=== PATIENT | male | born 1945 | race Caucasian/White ===

== ENCOUNTER → 2017-01-23 | Outpatient (CLI) | payer OTHER ==
[~2017-01-23] MED LIST: IOPAMIDOL (ISOVUE-300) 100 ML BTL ONE
== END ==
LOC: FIMAGING 12:25
PROVIDERS: ATTEND Internal Medicine
DX: K83.9 Disease of biliary tract, unspecified (principal); K86.9 Disease of pancreas, unspecified; N28.1 Cyst of kidney, acquired
CPT/HCPCS: 74160; Q9967

== ENCOUNTER → 2017-01-23 | Outpatient (CLI) | payer OTHER | LOC: BMCIMAGING 07:17 | PROVIDERS: ATTEND Internal Medicine | DX: K86.89 Other specified diseases of pancreas (principal) ==

== ENCOUNTER 2017-01-29 07:35 | Day surgery (SDC) | payer OTHER ==
[2017-01-29] MEDS ORDERED: LR 1,000 ML IV ONE (07:48)
[2017-01-29] MEDS ORDERED: LIDOCAINE 1% 2 ML INJ ID PRN (07:48)
[2017-01-29 08:12] VITALS: PULSE 60
[2017-01-29] MEDS ORDERED: PROPOFOL 200 MG/20 ML VIAL ONE (08:17)
[2017-01-29] MEDS ORDERED: LIDOCAINE 2% 5 ML SDV ONE (08:18)
[2017-01-29] MEDS ORDERED: SUCCINYLCHOLINE CHLORIDE*ANESTHESIA ONLY*200 MG/10 ML SYR IVP ONE (08:20)
[2017-01-29] MEDS ORDERED: GLUCAGON HCL 1 MG VIAL ONE (08:27)
[2017-01-29] MEDS ORDERED: IOTHALAMATE MEG (CONRAY) 50 ML VIAL IV ONE (08:28)
[2017-01-29] MEDS ORDERED: DEXAMETHASONE 4 MG/ML VIAL ONE (09:02)
[2017-01-29] MEDS ORDERED: ONDANSETRON 4 MG/2 ML VIAL ONE (09:03)
[2017-01-29] MEDS ORDERED: INDOMETHACIN 50 MG SUPP PR PRN (09:12)
--- NOTE | 2017-01-29 09:12 | PDGENHP ---
History & Physical Chief Complaint: abnormal imaging History of Present Illness: 71 year old male presents for evaluation of biliary obstruction and mass in head of pancreas. Pertinent Past, Social, Family History: PMHx: HTN Relevant Physical Exam: HEENT: anicteric. CV: RRR +s1s2. Lungs: CTAB. Abd: soft, nt, + bs. No g/r Cardiorespiratory Assessment: ASA 2
[2017-01-29] MEDS ORDERED: NS 500 ML IV SCH (09:15)
[2017-01-29] MEDS ORDERED: levOFLOXACIN 500 MG/DEXTROSE/100 ML BAG IV ONE (10:02)
[2017-01-29] MEDS ORDERED: OXYCODONE/APAP 5/325 TAB PO PRN (10:33)
[2017-01-29] MEDS ORDERED: ACETAMINOPHEN 500 MG TAB PO PRN (10:33)
[2017-01-29] MEDS ORDERED: NALOXONE HCL 0.4 MG/ML INJ IVP PRN (10:33)
[2017-01-29] MEDS ORDERED: ALBUTEROL 3 ML DEYVIAL IH PRN (10:33)
[2017-01-29] MEDS ORDERED: fentaNYL 100 MCG/2 ML INJ IVP PRN (10:33)
--- NOTE | 2017-01-29 10:33 | POSTANESTH ---
Post Anesthetic Evaluation Cardiovascular Status: Normal, Stable Respiratory Status: Normal, Stable Level of Consciousness/Mental Status: Can Participate in Eval Pain Control: Adequate, Prn Tx Ordered Nausea/Vomiting Control: Adequate, Prn Tx Ordered Complications Possibly Related to Anesthesia: None Noted
--- NOTE | 2017-01-29 10:33 | PDANEPAE ---
ANE History of Present Illness h/o pancreatic mass ANE Past Medical History - Cardiovascular History Hx Hypertension: No Hx Arrhythmias: Yes Hx Chest Pain: No Hx Coronary Artery / Peripheral Vascular Disease: No Hx CHF / Valvular Disease: No Hx Palpitations: No Cardiovascular History Comment: atrial fib X 1 occurance - Pulmonary History Hx COPD: No Hx Asthma/Reactive Airway Disease: No Hx Recent Upper Respiratory Infection: No Hx Oxygen in Use at Home: No Hx Sleep Apnea: No Sleep Apnea Screening Result - Last Documented: Negative Pulmonary History Comment: Histoplasmosis - Neurologic History Hx Cerebrovascular Accident: No Hx Seizures: No Hx Dementia: No - Endocrine History Hx Diabetes: No - Renal History Hx Renal Disorders: No - Liver History Hx Hepatic Disorders: No - Neurological & Psychiatric Hx Hx Neurological and Psychiatric Disorders: Yes Neurological / Psychiatric History Comment: anxious - Cancer History Hx Cancer: No - Congenital Disorder History Hx Congenital Disorders: Yes - GI History Hx Gastrointestinal Disorders: Yes Gastrointestinal History Comment: Bloating, Gerd, pancreatic mass - Chronic Pain History Chronic Pain: No - Surgical History Prior Surgeries: bunionectomy right ANE Review of Systems Review of Systems: - Exercise capacity METS (RN): 5 METS ANE Patient History - Allergies Allergies/Adverse Reactions: No Known Allergies Allergy (Unverified 01/26/17 13:53) - Home Medications Home medications: home medication list seen and reviewed Home Medications: Ambien 10 mg PRN 01/26/17 [Last Taken 01/26/17] Ativan 01/26/17 [Last Taken 01/28/17] - NPO status NPO Since - Liquids (Date): 01/28/17 NPO Since - Liquids (Time): 21:00 NPO Since - Solids (Date): 01/28/17 NPO Since - Solids (Time): 18:00 - Anes Hx Anes Hx: no prior problems - Smoking Hx Smoking Status: Former smoker - Family Anes Hx Family Hx Anesthesia Complications: none ANE Labs/Vital Signs - Vital Signs Blood Pressure: 137/84 Heart Rate: 60 Respiratory Rate: 16 O2 Sat (%): 96 Height: 180.34 cm Weight: 71.668 kg ANE Physical Exam - Airway Neck exam: FROM Mallampati Score: Class 1 Mouth exam: normal dental/mouth exam - Pulmonary Pulmonary: no respiratory distress - Cardiovascular Cardiovascular: regular rate and rhythym - ASA Status ASA Status: II ANE Anesthesia Plan Anesthesia Plan: general endotracheal anesthesia Urgent/Emergent Case: Anes eval completed preop but documented later for safe timely pt care
--- NOTE | 2017-01-29 10:37 | GIREPORT ---
[facility] Surgical Services - Endoscopy Department Patient Name: Ishaan Locke Procedure Date: 01/29/2017 9:04 AM Patient Type: Outpatient Attending MD/ ER Physician: Wesley Simon MD Procedure: Upper EUS Indications: Suspected mass in pancreas on CT scan, Elevated alkaline phosphatase Patient Profile: 71 year old male presents for abnormal imaging. He had a recent CT scan which revealed a mass in the head of the pancreas with biliary obstruct ion. Providers: Wesley Simon MD Medicines: General Anesthesia Complications: No immediate complications. Estimated blood loss: Minimal. Description of Procedure: After obtaining informed consent, the endoscope was passed under direct vision. Throughout the procedure, the patient's blood pressure, pulse, and oxygen saturations were monitored continuously. The Endosonoscope was introduced through the mouth, and advanced to the second part of duoden um. The Endoscope was introduced through the mouth, and advanced to the sec ond part of duodenum. The upper EUS was accomplished without difficulty. Th e esophagus, stomach, and duodenum were visualized endosonographically. T he patient tolerated the procedure well. Findings: Endoscopic Finding : Mucosal changes including a subtle ringed esophagus were found in the m iddle third of the esophagus. Biopsies were taken with a cold forceps for histology. A hiatal hernia was present. Patchy mildly erythematous mucosa was found in the gastric body and in the gastric antrum. Biopsies were taken with a cold forceps for histology. The examined duodenum was normal. Endosonographic Finding : An irregular mass was identified in the pancreatic head. The mass was hypoechoic. The mass measured 25.5 mm by 21 mm in maximal cross-section al diameter. The endosonographic borders were poorly-defined. No vessel involvement was noted. The remainder of the pancreas was examined. The endosonographic appearance of parenchyma and the upstream pancreatic du ct indicated duct dilation (6mm) Fine needle aspiration for cytology was performed. Color Doppler imaging was utilized prior to needle puncture to confirm a lack of significant vascular structures within the needle pat h. One pass was made with the 25 gauge needle using a transduodenal approa ch. A stylet was used. A cook's assistant was present and performed a preliminary cytologic examination. 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 A few lmyph nodes measuring 3-4 mm, round, and isoechoic were seen. They were located close to the level of the tumor and thus not amenable to FNA. There was dilation in the main bile duct which measured up to 14 mm. Th e gallbladder was distended. There was no sign of significant endosonographic abnormality in the visualized portion of the liver. Homogeneous parenchyma was identified. Estimated Blood Loss: Estimated blood loss was minimal. Post Op Diagnosis: - Esophageal mucosal changes which may represent eosinophilic esophagit is. Biopsied. - Hiatal hernia. - Erythematous mucosa in the gastric body and antrum. Biopsied. - Normal examined duodenum. - A mass was identified in the pancreatic head. Fine needle aspiration performed. A few small peripancreatic lymph nodes were seen which were not amenable to FNA. No vessel or liver involvement visualized. - There was dilation in the entire main bile duct and in the gallbladde r which measured up to 14 mm. - There was no evidence of significant pathology in the visualized port ion of the liver. Recommendation: - Perform an ERCP today. - Await cytology results and await path results. - Thank you for allowing me to participate in the care of your patient. Attending Participation: I personally performed the entire procedure. Wesley Simon MD Wesley Simon MD 01/29/2017 10:37:02 AM This report has been signed electronicallyWesley Simon MD Number of Addenda: 0 Note Initiated On: 01/29/2017 9:04 AM [email or web address]
[2017-01-29 10:54] VITALS: TEMP 97.9
--- NOTE | 2017-01-29 10:56 | GIREPORT ---
[facility] Surgical Services - Endoscopy Department Patient Name: Ishaan Locke Procedure Date: 01/29/2017 9:40 AM Patient Type: Outpatient Attending MD/ ER Physician: Wesley Simon MD Procedure: ERCP Indications: Biliary obstruction, CBD stricture Patient Profile: 71 year old male presents for biliary decompression. Providers: Wesley Simon MD Medicines: General Anesthesia, Indomethacin 100 mg OH, Levaquin 500 mg IV Complications: No immediate complications. Estimated blood loss: Minimal. Description of Procedure: After obtaining informed consent, the scope was passed under direct vis ion. Throughout the procedure, the patient's blood pressure, pulse, and oxyg en saturations were monitored continuously. The Duodenalscope was introduc ed through the mouth, and advanced to the duodenum and used to inject cont rast into the bile duct. The ERCP was accomplished without difficulty. The patient tolerated the procedure well. Findings: The spool sorter film was normal. The esophagus was successfully intubated und er direct vision. The scope was advanced to a normal major papilla in the descending duodenum without detailed examination of the pharynx, larynx and associated structures, and upper GI tract. The upper GI tract was gross ly normal. A wire was passed into the biliary tree after about 4-5x. The short-nosed traction sphincterotome was passed over the guidewire and t he bile duct was then deeply cannulated. Contrast was injected. I personal ly interpreted the bile duct images. Ductal flow of contrast was adequate. Image quality was adequate. Contrast extended to the entire biliary johan e. A 2cm distal CBD stricture at the level of the pancreas was noted. A 10 m m biliary sphincterotomy was made with a traction (standard) sphincteroto me using pure cut current. The sphincterotomy oozed blood. The biliary johan e was swept with a 12 mm balloon starting at the bifurcation. Sludge was swep t from the duct. One 10 mm by 6 cm temporary covered metal stent was plac ed into the common bile duct. Bile flowed through the stent. The stent was in good position. A 10mm x 4cm stent was attempted to be placed but could not be deployed due to the stent being defective. Estimated Blood Loss: Estimated blood loss: Minimal. Post Op Diagnosis: - A biliary sphincterotomy was performed. - The biliary tree was swept and sludge was found. - One removalable fully covered metal stent was placed into the common bile duct. Recommendation: - Discharge patient to home (with escort). - Clear liquid diet. - Continue present medications. - Follow up with oncology - Thank you for allowing me to participate in the care of your patient. Attending Participation: I personally performed the entire procedure. Wesley Simon MD Wesley Simon MD 01/29/2017 10:55:23 AM This report has been signed electronicallyWesley Simon MD Number of Addenda: 0 Note Initiated On: 01/29/2017 9:40 AM [email or web address]}
[2017-01-29 11:21] VITALS: RESP 14
[2017-01-29 12:29] VITALS: BP 165/100; O2SAT 96
== END 2017-01-29 12:22 | disposition home or self-care (01) ==
LOC: FSGY 07:35
PROVIDERS: ATTEND Internal Medicine Gastroenterology
PROC: 0FBG8ZX Excision of Pancreas, Via Natural or Artificial Opening Endoscopic, Diagnostic (ICD-10-PCS; principal; 2017-01-29 09:00)
PROC: 0F798DZ Dilation of Common Bile Duct with Intraluminal Device, Via Natural or Artificial Opening Endoscopic (ICD-10-PCS; principal; 2017-01-29 09:00)
PROC: 0DB28ZX Excision of Middle Esophagus, Via Natural or Artificial Opening Endoscopic, Diagnostic (ICD-10-PCS; principal; 2017-01-29 09:00)
PROC: 0DB68ZX Excision of Stomach, Via Natural or Artificial Opening Endoscopic, Diagnostic (ICD-10-PCS; principal; 2017-01-29 09:00)
DX: C25.9 Malignant neoplasm of pancreas, unspecified (principal); K83.8 Other specified diseases of biliary tract; K21.9 Gastro-esophageal reflux disease without esophagitis; K44.9 Diaphragmatic hernia without obstruction or gangrene
CPT/HCPCS: C1874; J0330; J1100; J1610; J1956; J2405; J2704; Q9961

== ENCOUNTER 2017-02-09 06:36 | Day surgery (SDC) | payer OTHER ==
--- NOTE | 2017-02-08 14:41 | GHP ---
[f rep st] HISTORY AND PHYSICAL DATE OF SURGERY: Thursday, February 09, 2017. HISTORY OF PRESENT ILLNESS: Patient is a very pleasant, 71-year-old male, former [employer] of [employer], who was recently diagnosed with pancreatic cancer. He comes to our office to discuss having a port placed for chemotherapy. He reports he is going to undergo chemotherapy and possibly radiation first and then be assessed for whether he is a surgical candidate ( [facility]). He has consulted a surgeon [facility]. He has never had any chest surgery. He is otherwise healthy, no heart or lung issues in the past. PAST MEDICAL HISTORY: None. PAST SURGICAL HISTORY: Inguinal hernia repair (Dr. Martínez). ALLERGIES: None. MEDICATIONS: Ambien p.r.n., Ativan p.r.n. 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 REVIEW OF SYSTEMS: Negative 10 point review of systems. PHYSICAL EXAMINATION: GENERAL: Patient is a very pleasant, fit-appearing male in no apparent distress, non-jaundice. HEAD AND NECK: No masses. CHEST: No scars. CTA bilaterally. HEART: Regular rhythm and rate. ABDOMEN: Soft, nontender. EXTREMITIES: No lower extremity edema. Normal dorsalis pedis pulses to palpation. IMPRESSION: A 71-year-old male with a diagnosis of pancreatic cancer, in need of access for chemotherapy. RECOMMENDATION: Port placement procedure was discussed with the patient in detail, including risks of pneumothorax and great vessel injury. Also discussed were the routine surgical risks, including infection, bleeding, hematoma or seroma. Patient was seen and examined by Dr. Martínez. He elects to schedule surgery tomorrow, on February 09, 2017. /[id number]/MODL MTDD
--- NOTE | 2017-02-08 17:57 | PDHPUP ---
History & Physical Update H&P update statement: This history and physical update is based on an assessment of the patient which was completed after admission or registration (within 24 hours), but prior to the surgery/procedure. Updated
[2017-02-09] MEDS ORDERED: ceFAZolin 2 GM/DEXTROSE 100 ML IV ONE (06:43)
[2017-02-09] MEDS ORDERED: LIDOCAINE 1% 2 ML INJ ID PRN (06:46)
[2017-02-09] MEDS ORDERED: LR 1,000 ML IV ONE (06:46)
[2017-02-09 07:00] VITALS: PULSE 64
[2017-02-09] MEDS ORDERED: ceFAZolin 2 GM/SWFI 2 GM/20 ML SYR IVP ONE (07:00)
[2017-02-09] MEDS ORDERED: BUPIVACAINE 0.5% 30 ML SDV ONE (07:31)
[2017-02-09] MEDS ORDERED: BACITRACIN ZINC 14.2 GM OINTTUBE TP ONE (07:31)
[2017-02-09] MEDS ORDERED: LIDOCAINE 1% 300 MG/30 ML SDV ONE (07:31)
[2017-02-09] MEDS ORDERED: SODIUM BICARBONATE 10 MEQ/10 ML SYR IVP ONE (07:31)
[2017-02-09] MEDS ORDERED: PROPOFOL 200 MG/20 ML VIAL ONE (08:02)
[2017-02-09] MEDS ORDERED: fentaNYL 100 MCG/2 ML INJ ONE (08:02)
[2017-02-09] MEDS ORDERED: ONDANSETRON 4 MG/2 ML VIAL ONE (08:04)
[2017-02-09] MEDS ORDERED: DEXAMETHASONE 4 MG/ML VIAL ONE (08:04)
[2017-02-09] MEDS ORDERED: ACETAMINOPHEN 500 MG TAB PO PRN (08:38)
[2017-02-09] MEDS ORDERED: HYDROmorphONE/DILAUDID 1 MG/ML INJ IVP PRN (08:38)
[2017-02-09] MEDS ORDERED: LR 500 ML IV PRN (08:38)
[2017-02-09] MEDS ORDERED: HYDROCODONE/APAP 5/325 TAB PO PRN (08:38)
[2017-02-09] MEDS ORDERED: ONDANSETRON 4 MG/2 ML VIAL IVP PRN (08:38)
[2017-02-09] MEDS ORDERED: OXYCODONE/APAP 5/325 TAB PO PRN (08:38)
[2017-02-09] MEDS ORDERED: ALBUTEROL 3 ML DEYVIAL IH PRN (08:38)
[2017-02-09] MEDS ORDERED: fentaNYL 100 MCG/2 ML INJ IVP PRN (08:38)
[2017-02-09] MEDS ORDERED: NALOXONE HCL 0.4 MG/ML INJ IVP PRN (08:38)
--- NOTE | 2017-02-09 08:38 | PDANEPAE ---
ANE History of Present Illness h/o pancreatic ca. p/f portacath ANE Past Medical History - Cardiovascular History Hx Hypertension: No Hx Arrhythmias: Yes Hx Chest Pain: No Hx Coronary Artery / Peripheral Vascular Disease: No Hx CHF / Valvular Disease: No Hx Palpitations: No Cardiovascular History Comment: atrial fib X 1 occurance - Pulmonary History Hx COPD: No Hx Asthma/Reactive Airway Disease: No Hx Recent Upper Respiratory Infection: No Hx Oxygen in Use at Home: No Hx Sleep Apnea: No Sleep Apnea Screening Result - Last Documented: Negative Pulmonary History Comment: Histoplasmosis - Neurologic History Hx Cerebrovascular Accident: No Hx Seizures: No Hx Dementia: No - Endocrine History Hx Diabetes: No - Renal History Hx Renal Disorders: No - Liver History Hx Hepatic Disorders: No - Neurological & Psychiatric Hx Hx Neurological and Psychiatric Disorders: Yes Neurological / Psychiatric History Comment: anxiety - Cancer History Hx Cancer: Yes Cancer History Comment: current pancreatic cancer - Congenital Disorder History Hx Congenital Disorders: No - GI History Hx Gastrointestinal Disorders: Yes Gastrointestinal History Comment: 01/29/17 ercp and eus with Raju. Bloating. Gerd. pancreatic mass - Other Health History Other Health History: wears glasses - Chronic Pain History Chronic Pain: No - Surgical History Prior Surgeries: 01/29/17 ERCP, EUS with Raju. bunionectomy right ANE Review of Systems Review of systems is: negative Review of Systems: - Exercise capacity METS (RN): 5 METS ANE Patient History - Allergies Allergies/Adverse Reactions: No Known Allergies Allergy (Verified 02/08/17 16:40) - Home Medications Home medications: home medication list seen and reviewed Home Medications: Ambien 10 mg PRN 01/26/17 [Last Taken 02/08/17] Ativan 01/26/17 [Last Taken 02/08/17] Digestive Enzymes 02/09/17 [Last Taken 02/09/17] Zantac 02/09/17 [Last Taken 02/08/17] - NPO status NPO Since - Liquids (Date): 02/09/17 NPO Since - Liquids (Time): 06:00 NPO Since - Solids (Date): 02/08/17 NPO Since - Solids (Time): 18:00 - Anes Hx Anes Hx: no prior problems - Smoking Hx Smoking Status: Former smoker - Family Anes Hx Family Hx Anesthesia Complications: none ANE Labs/Vital Signs - Vital Signs Blood Pressure: 129/81 Heart Rate: 64 Respiratory Rate: 16 O2 Sat (%): 97 Height: 180.34 cm Weight: 71.668 kg ANE Physical Exam - Airway Neck exam: FROM Mallampati Score: Class 1 Mouth exam: normal dental/mouth exam - Pulmonary Pulmonary: no respiratory distress - Cardiovascular Cardiovascular: regular rate and rhythym - ASA Status ASA Status: III ANE Anesthesia Plan Anesthesia Plan: GA w LMA Urgent/Emergent Case: Rosaura adair completed preop but documented later for safe timely pt care
--- NOTE | 2017-02-09 08:59 | POSTOPPROG ---
Post Op Note Date of Operation: 02/09/17 Surgeon: Gustavo Martínez Anesthesiologist: kimberly Anesthesia: GET(General Endotracheal) Pre-op Diagnosis: pancreatic cancer Post-op Diagnosis: same Indication: chemo Procedure: left subclavian port Findings: good position and flow Inf/Abcess present in the surg proc area at time of surgery?: No Depth: Deep Incisional (Fascial) EBL: Minimal Complications: 0
[2017-02-09 09:28] VITALS: TEMP 97.9
[2017-02-09 09:36] VITALS: RESP 14
[2017-02-09 10:44] VITALS: BP 138/89; O2SAT 94
--- NOTE | 2017-02-09 14:40 | GOP ---
[f rep st] OPERATIVE REPORT DATE OF OPERATION: SURGEON: Gustavo Martínez MD PREOPERATIVE DIAGNOSIS: Pancreatic cancer. POSTOPERATIVE DIAGNOSIS: Pancreatic cancer. PROCEDURE PERFORMED: Left subclavian port placement with fluoroscopic guidance. FINDINGS: Patient was found to have good flow and good position of the catheter. DESCRIPTION OF PROCEDURE: The patient was taken to the operating room, where he received satisfactor y general laryngeal mask anesthesia by Dr. Ch. He was placed in the supine position, prepped a nd draped in the usual sterile fashion, and was then placed in Trendelenburg. A single stick was mad e in the left subclavian vein. Guidewire was introduced, position was confirmed with fluoroscopy. A subcu pocket was made in the 2nd intercostal space. Port tubing was passed from that pocket to the subclavian insertion site. It was trimmed to the appropriate length using fluoroscopic guidance and introduced through the introducer sheath and dilator system into the right atrium. Good backflow was achieved. The catheter was flushed with heparin and saline. Port was secured to the fascia with 3- 0 Vicryl, pocket was closed with 3-0 Vicryl subcuticular and 4-0 Prolene subcuticular stitch for the skin. The entrance site was closed with Prolene mattress suture. Wounds were infiltrated with 0.5% Marcaine. He tolerated the procedure well, was taken to the recovery room in good condition. No com plications, had appropriate vital signs. /[id number]/MODL
== END 2017-02-09 10:50 | disposition home or self-care (01) ==
LOC: FSGY 06:36
PROVIDERS: ATTEND Surgery
DX: C25.0 Malignant neoplasm of head of pancreas (principal)
CPT/HCPCS: C1788; J0690; J1100; J1642; J2405; J2704; J3010

== ENCOUNTER → 2017-05-17 | Outpatient (CLI) | payer OTHER, MEDICARE | LOC: FIMAGING 08:54 | PROVIDERS: ATTEND Internal Medicine Hematology & Oncology | DX: C25.0 Malignant neoplasm of head of pancreas (principal) | CPT/HCPCS: 71260; 74177; Q9967 ==

== ENCOUNTER 2017-07-11 03:43 | Observation (INO) | payer OTHER, MEDICARE ==
--- NOTE | 2017-07-11 04:03 | EDPHY ---
H & P Stated Complaint: CONSTIPATION X 4 DAYS Time Seen by Provider: 07/11/17 04:03 HPI/ROS: HPI CHIEF COMPLAINT: Abdominal pain, nausea vomiting HISTORY OF PRESENT ILLNESS: Patient is a 72-year-old male, he presents emergency room with abdominal pain x4 days progressively getting worse with associated nausea vomiting. Additionally he reports that he has not had a bowel movement 4 days in feels like he is constipated. Complains of rather diffuse abdominal pain. Unable tolerate p.o. Liquids or food. States every time he tries to drink or eat something he vomits it back up and feels rather full. Denies chest pain or shortness of breath. Patient presents emergency room as he thinks he is constipated. Pain is currently 6/10. Past Medical History: Pancreatic cancer status post radiation chemo. Due to get whipple. Past Surgical History: No recent surgery Social History: Denies drugs alcohol tobacco Family History: Noncontributory ROS REVIEW OF SYSTEMS: A comprehensive 10 point review of systems is otherwise negative aside from elements mentioned in the history of present illness. Exam Constitutional appears well nontoxic no acute distress triage nursing summary reviewed, vital signs reviewed, awake/alert. Eyes normal conjunctivae and sclera, EOMI, PERRLA. HENT normal inspection, atraumatic, moist mucus membranes, no epistaxis, neck supple/ no meningismus, no raccoon eyes. Respiratory clear to auscultation bilaterally, normal breath sounds, no respiratory distress, no wheezing. Cardiovascular rate normal, regular rhythm, no murmur, no edema, distal pulses normal. Gastrointestinal hypoactive bowel sounds, tender palpation diffusely, no distension, no peritoneal signs no rebound, no guarding, no distension, no pulsatile mass. Genitourinary no CVA tenderness. Musculoskeletal no midline vertebral tenderness, full range of motion, no calf swelling, no tenderness of extremities, no meningismus, good pulses, neurovascularly intact. Skin pink, warm, & dry, no rash, skin atraumatic. Neurologic awake, alert and oriented x 3, AAOx3, moves all 4 extremities equally, motor intact, sensory intact, CN II-XII intact, normal cerebellar, normal vision, normal speech. Psychiatric normal mood/affect. Heme/Lymph/Immune no lymphadenopathy. Differential diagnosis includes but is not limited to and in no particular order : Bowel obstruction, appendicitis, gallbladder disease, diverticulitis, colitis , enteritis, perforated viscus, gastritis, GERD, esophagitis, urinary tract infection, pyelonephritis, kidney stones Medical Decision Making: Plan for this patient IV establishment IV blood draw, check lactic acid, KUB to rule out abnormal bowel gas pattern, may need to proceed with CT scan abdomen pelvis with IV contrast rule out bowel obstruction or other acute abdominal process, check blood work, IV Dilaudid 1 mg for pain control, IV Zofran 4 mg for nausea and re-evaluate. Re-evaluation: 06: Patient back from CT. CT scan abdomen pelvis with IV contrast shows duodenitis or inflammation duodenum. No perforation. No free air. No free fluid. CT as well shows constipation. Called to me by Dr. Marks. Plan for this patient he will need to be admitted the hospital for pain control and IV fluids. Lipase noted be elevated 1000 range. This may be contributing to his abdominal pain along with his duodenal enlargement. And constipation. 0621; spoke with the hospitalist service about admission. Recommend hospital admission for abdominal pain, mild pancreatitis, duodenitis. Patient is not vomiting. Plan will be for admission for pain control, IV fluids, bowel rest and re- evaluation. Spoke with Dr. Combs who agrees to admit the patient. Patient okay with admission. Source: Patient - Personal History Current Tetanus Diphtheria and Acellular Pertussis (TDAP): Unsure - Medical/Surgical History Hx Asthma: No Hx Chronic Respiratory Disease: No Hx Diabetes: No Hx Cardiac Disease: No Hx Renal Disease: No Hx Cirrhosis: No Hx Alcoholism: No Hx HIV/AIDS: No Hx Splenectomy or Spleen Trauma: No Other PMH: ADENOCARCINOMA, RADIATION X 1 MONTH AGO, CHEMO APR 26, 2017 - Social History Smoking Status: Former smoker Constitutional: Initial Vital Signs Temperature (C) 37.0 C 07/11/17 03:48 Heart Rate 70 07/11/17 03:48 Respiratory Rate 16 07/11/17 03:48 Blood Pressure 152/79 H 07/11/17 03:48 O2 Sat (%) 93 07/11/17 03:48 O2 Delivery Mode Room Air O2 (L/minute) 2 Allergies/Adverse Reactions: No Known Allergies Allergy (Verified 02/08/17 16:40) Home Medications: Medication Instructions Recorded LORazepam [Ativan (*)] 1 mg PO TID PRN #0 01/26/17 Zolpidem Tartrate [Ambien Cr] 6.25 mg PO HS PRN #0 01/26/17 Lipase 24,000/Amylase/Protease 2 cap PO TIDMEAL 02/09/17 [Creon 24 (*)] Ranitidine HCl [Zantac] 150 mg PO BID 02/09/17 Carboxymethylcellulose 1% [Refresh 1 drop EACHEYE DAILY PRN 07/11/17 Celluvisc (*)] Escitalopram Oxalate [Lexapro] 10 mg PO HS 07/11/17 Lipase 24,000/Amylase/Protease 1 cap PO Q8HRS PRN 07/11/17 [Creon 24 (*)] Sucralfate [Carafate 1gm/10ml Oral 1 gm PO QID PRN 07/11/17 Liquid (*)] Medical Decision Making - Data Points Laboratory Results: Laboratory Results 07/11/17 04:35 07/11/17 04:35 Medications Given: Acetaminophen (Tylenol) 650 mg PO Q4HRS PRN PRN Reason: Pain, Mild/Fever, Can Take PO Stop: 01/07/18 16:17 Last Admin: 07/11/17 16:23 Dose: 650 mg Lipase/Protease/Amylase (Creon) 2 cap PO TIDMEAL REDD Stop: 01/07/18 17:59 Last Admin: 07/11/17 16:51 Dose: Not Given Escitalopram Oxalate (Lexapro) 10 mg PO HS [facility] Stop: 01/07/18 20:59 Last Admin: 07/11/17 20:39 Dose: 10 mg Sodium Chloride (Ns) 1,000 mls @ 125 mls/hr IV CONT REDD Stop: 01/07/18 07:44 Last Admin: 07/11/17 16:04 Dose: 1,000 mls Famotidine/Sodium Chloride (Pepcid 20 Mg (Premix)) 50 mls @ 200 mls/hr IV Q12HRS REDD Stop: 01/07/18 20:59 Last Admin: 07/11/17 20:39 Dose: 50 mls Ondansetron HCl (Zofran) 4 mg IVP Q4HRS PRN PRN Reason: Nausea/Vomiting, Can't Take PO Stop: 01/07/18 07:39 Last Admin: 07/11/17 12:44 Dose: 4 mg Ondansetron HCl (Zofran) 4 mg IVP TID [facility] Stop: 01/07/18 15:59 Last Admin: 07/11/17 20:39 Dose: 4 mg Pantoprazole Sodium (Protonix) 40 mg IVP BID [facility] Stop: 01/07/18 20:59 Last Admin: 07/11/17 20:39 Dose: 40 mg Discontinued Medications Enoxaparin Sodium (Lovenox) 40 mg SC DAILY [facility] Stop: 01/07/18 08:59 Last Admin: 07/11/17 12:06 Dose: Not Given Famotidine (Pepcid) 20 mg IVP EDNOW ONE Stop: 07/11/17 06:07 Last Admin: 07/11/17 06:09 Dose: 20 mg Hydromorphone HCl (Dilaudid) 1 mg IVP EDNOW ONE Stop: 07/11/17 04:09 Last Admin: 07/11/17 04:45 Dose: 1 mg Sodium Chloride (Ns) 1,000 mls @ 0 mls/hr IV EDNOW ONE; Wide Open PRN Reason: Protocol Stop: 07/11/17 04:09 Last Admin: 07/11/17 04:42 Dose: 1,000 mls Ondansetron HCl (Zofran) 4 mg IVP EDNOW ONE Stop: 07/11/17 04:09 Last Admin: 07/11/17 04:42 Dose: 4 mg Polyethylene Glycol (Miralax) 17 gm PO BID ONE Stop: 07/11/17 17:22 Last Admin: 07/11/17 18:19 Dose: Not Given Promethazine HCl (Phenergan) 6.25 mg IVP ONCE ONE Stop: 07/11/17 07:13 Last Admin: 07/11/17 07:16 Dose: 6.25 mg Departure - Departure Disposition: [facility] Inpatient Acute Clinical Impression: Duodenitis Pancreatitis Qualifiers: Chronicity: acute Pancreatitis type: other Acute pancreatitis complication: unspecified Qualified Code(s): K85.80 - Other acute pancreatitis without necrosis or infection Constipation Qualifiers: Constipation type: unspecified constipation type Qualified Code(s): K59.00 - Constipation, unspecified Abdominal pain Qualifiers: Abdominal location: generalized Qualified Code(s): R10.84 - Generalized abdominal pain Condition: Fair
[2017-07-11] MEDS ORDERED: HYDROmorphONE/DILAUDID 2 MG/ML INJ IVP ONE (04:08)
[2017-07-11] MEDS ORDERED: ONDANSETRON 4 MG/2 ML VIAL IVP ONE (04:08)
[2017-07-11] MEDS ORDERED: NS 1,000 ML IV ONE (04:08)
[2017-07-11] MEDS ORDERED: IOPAMIDOL (ISOVUE-300) 100 ML BTL ONE (04:23)
[2017-07-11 04:50] LABS: PLATELET COUNT 183 10^3/uL (150-400)
[2017-07-11 05:31] LABS: INR 1.03 (0.83-1.16); PROTIME(PATIENT) 13.7 SEC (12.0-15.0)
[2017-07-11] MEDS ORDERED: FAMOTIDINE 20 MG/2 ML SDV IVP ONE (06:06)
[2017-07-11] MEDS ORDERED: PROMETHAZINE HCL 25 MG/ML INJ IVP ONE (07:12)
[2017-07-11] MEDS ORDERED: PROMETHAZINE HCL 25 MG/ML INJ ONE (07:15)
[2017-07-11] MEDS ORDERED: HYDROmorphone HCL/NS 0.5 MG/ML SYR IVP PRN (07:40)
[2017-07-11] MEDS: NS 1,000 ML IV SCH ×2 (08:18→16:04)
[2017-07-11] MEDS ORDERED: ENOXAPARIN 40 MG/0.4 ML SYR SC SCH (09:00)
[2017-07-11] MEDS: ONDANSETRON 4 MG/2 ML VIAL IVP PRN (12:44)
--- NOTE | 2017-07-11 14:05 | PDGENHP ---
History and Physical - Chief Complaint abd pain, n/v - History of Present Illness This is a 72 yo male with hx of pancreatic cancer who is s/p chemotherapy in April and Radiation therapy one month ago with subsequent gastritis who presents with decreased oral intake for several days, n/v, abd pain and dehydration. In the E.D. he was started on IVF and made NPO and currently he says he is starting to feel better. He cont to have generalized abd pain but with some localization to the mid epigastric and RLQ. He has not vomited since being in the hospital. He is having Flatus. He has not had a BM in several days. Imaging (KUB, CT abd personally reviewed) does not show e/o obstruction. There is duodenitis. He is not tolerant of PPI's. He has been taking Ranitidine and Carafate but has not been able to tolerate it due to emesis. He has had minimal urine output but since starting the IVF this has improved. He is scheduled for a Whipples soon and reports that he cannot take anticoagulation. He does not have a resp or cardiac symptoms or disease. Although he reports a hx of Afib 15 years ago. He is not on a BB He denies fever. Past Medical History: Pancreatic cancer status post radiation one month ago. chemo in April. Due to get whipple. Past Surgical History: No recent surgery Social History: Denies drugs alcohol tobacco Family History: Noncontributory History Information - Allergies/Home Medication List Allergies/Adverse Reactions: No Known Allergies Allergy (Verified 02/08/17 16:40) Home Medications: LORazepam [Ativan (*)] 1 mg PO TID PRN #0 01/26/17 [Last Taken 02/08/17] Zolpidem Tartrate [Ambien Cr] 6.25 mg PO HS PRN #0 01/26/17 [Last Taken 07/09/17 ] Lipase 24,000/Amylase/Protease [Creon 24 (*)] 2 cap PO TIDMEAL 02/09/17 [Last Taken 07/10/17 18:00] Ranitidine HCl [Zantac] 150 mg PO BID 02/09/17 [Last Taken 07/10/17 21:00] Carboxymethylcellulose 1% [Refresh Celluvisc (*)] 1 drop EACHEYE DAILY PRN 07/11 [Last Taken Unknown] Escitalopram Oxalate [Lexapro] 10 mg PO HS 07/11/17 [Last Taken 07/10/17] Lipase 24,000/Amylase/Protease [Creon 24 (*)] 1 cap PO Q8HRS PRN 07/11/17 [Last Taken Unknown] Sucralfate [Carafate 1gm/10ml Oral Liquid (*)] 1 gm PO QID PRN 07/11/17 [Last Taken 07/11/17 00:00] I have personally reviewed and updated: medical history, social history - Social History Smoking Status: Former smoker Review of Systems Review of Systems: ROS: 10pt was reviewed & negative except for what was stated in HPI & below Physical Exam Physical Exam: Temp Pulse Resp BP Pulse Ox 36.9 C 69 16 158/85 H 94 07/11/17 08:03 07/11/17 11:24 07/11/17 11:24 07/11/17 11:24 07/11/17 11:24 Constitutional: no apparent distress Eyes: PERRL, EOMI Ears, Nose, Mouth, Throat: dry mucous membranes Cardiovascular: regular rate and rhythym, No edema Respiratory: no respiratory distress, no rales or rhonchi, clear to auscultation Gastrointestinal: normoactive bowel sounds, tenderness (mild generalized tenderness), No rebound, No distension Skin: warm Neurologic: AAOx3 Psychiatric: interacting appropriately, not anxious, not encephalopathic Lymph, Heme, Immunologic: No petechiae Lab Data & Imaging Review 07/11/17 04:35 07/11/17 04:35 WBC 4.93 10^3/uL (3.80-9.50) 07/11/17 04:35 RBC 4.33 10^6/uL (4.40-6.38) L 07/11/17 04:35 Hgb 13.6 g/dL (13.7-17.5) L 07/11/17 04:35 Hct 40.4 % (40.0-51.0) 07/11/17 04:35 MCV 93.3 fL (81.5-99.8) 07/11/17 04:35 MCH 31.4 pg (27.9-34.1) 07/11/17 04:35 MCHC 33.7 g/dL (32.4-36.7) 07/11/17 04:35 RDW 13.0 % (11.5-15.2) 07/11/17 04:35 Plt Count 183 10^3/uL (150-400) 07/11/17 04:35 MPV 9.5 fL (8.7-11.7) 07/11/17 04:35 Neut % (Auto) 74.0 % (39.3-74.2) 07/11/17 04:35 Lymph % (Auto) 12.6 % (15.0-45.0) L 07/11/17 04:35 Christian % (Auto) 12.0 % (4.5-13.0) 07/11/17 04:35 Eos % (Auto) 0.6 % (0.6-7.6) 07/11/17 04:35 Baso % (Auto) 0.6 % (0.3-1.7) 07/11/17 04:35 Nucleat RBC Rel Count 0.0 % (0.0-0.2) 07/11/17 04:35 Absolute Neuts (auto) 3.65 10^3/uL (1.70-6.50) 07/11/17 04:35 Absolute Lymphs (auto) 0.62 10^3/uL (1.00-3.00) L 07/11/17 04:35 Absolute Monos (auto) 0.59 10^3/uL (0.30-0.80) 07/11/17 04:35 Absolute Eos (auto) 0.03 10^3/uL (0.03-0.40) 07/11/17 04:35 Absolute Basos (auto) 0.03 10^3/uL (0.02-0.10) 07/11/17 04:35 Absolute Nucleated RBC 0.00 10^3/uL (0-0.01) 07/11/17 04:35 Immature Gran % 0.2 % (0.0-1.1) 07/11/17 04:35 Immature Gran # 0.01 10^3/uL (0.00-0.10) 07/11/17 04:35 PT 13.7 SEC (12.0-15.0) 07/11/17 04:35 INR 1.03 (0.83-1.16) 07/11/17 04:35 APTT 37.8 SEC (23.0-38.0) 07/11/17 04:35 VBG Lactic Acid 1.0 mmol/L (0.7-2.1) 07/11/17 04:35 Sodium 143 mEq/L (135-145) 07/11/17 04:35 Potassium 3.7 mEq/L (3.5-5.2) 07/11/17 04:35 Chloride 98 mEq/L (97-110) 07/11/17 04:35 Carbon Dioxide 33 mEq/l (22-31) H 07/11/17 04:35 Anion Gap 12 mEq/L (8-16) 07/11/17 04:35 BUN 16 mg/dL (7-23) 07/11/17 04:35 Creatinine 0.7 mg/dL (0.7-1.3) 07/11/17 04:35 Estimated GFR > 60 07/11/17 04:35 Glucose 108 mg/dL (70-100) H 07/11/17 04:35 Calcium 10.1 mg/dL (8.5-10.4) 07/11/17 04:35 Total Bilirubin 0.8 mg/dL (0.1-1.4) 07/11/17 04:35 Conjugated Bilirubin 0.4 mg/dL (0.0-0.5) 07/11/17 04:35 Unconjugated Bilirubin 0.4 mg/dL (0.0-1.1) 07/11/17 04:35 AST 27 IU/L (17-59) 07/11/17 04:35 ALT 37 IU/L (21-72) 07/11/17 04:35 Alkaline Phosphatase 123 IU/L (38-126) 07/11/17 04:35 Total Protein 7.4 g/dL (6.3-8.2) 07/11/17 04:35 Albumin 4.3 g/dL (3.5-5.0) 07/11/17 04:35 Lipase 1065 IU/L (23-300) H 07/11/17 04:35 Assessment & Plan Assessment: #Abdominal pain, likely multifactorial. -Recent chemo and radiation are likely playing a large role #Duodenitis #Gastritis #Pancreatic cancer #Dehydration #N/V Plan: Hydration status is improving on IVF, will continue Cont NPO GI and Oncology to see, thank you He is intolerant of PPI's as he gets diarrhea Famotidine Antiemetics as needed. I'll schedule Zofran Pain mgmt SCD's No AC Full code, confirmed today at bedside.
[2017-07-11] MEDS ORDERED: LIPASE 24,000/AMYLASE/PROTEASE (CREON) 1 CAP PO PRN (14:14)
[2017-07-11] MEDS ORDERED: CARBOXYMETHYLCELLULOSE 1% 0.4 ML DROPERETTE EACHEYE PRN (14:14)
[2017-07-11] MEDS ORDERED: LORazepam 1 MG TAB PO PRN (14:14)
[2017-07-11] MEDS ORDERED: ZOLPIDEM TARTRATE 5 MG TAB PO PRN (14:35)
[2017-07-11] MEDS: ACETAMINOPHEN 325 MG TAB PO PRN (16:23)
[2017-07-11] MEDS: LIPASE 24,000/AMYLASE/PROTEASE (CREON) 1 CAP PO SCH (16:51)
[2017-07-11] MEDS: ONDANSETRON 4 MG/2 ML VIAL IVP SCH ×2 (16:51→20:39)
[2017-07-11] MEDS ORDERED: POLYETHYLENE GLYCOL 3350 17 GM PKT PO ONE (17:21)
--- NOTE | 2017-07-11 17:37 | GCON ---
[f rep st] CONSULTATION The patient is a very pleasant 72-year-old male who was diagnosed with pancreatic carcinoma. In the fall of 2016 he presented with right upper quadrant discomfort and a CT scan showed a mass in the pancreatic head with biliary and pancreatic duct obstruction. Cytology was consistent with an adenocarcinoma of the pancreas. There was question of the surgical resectability upfront and he received adjuvant FOLFIRINOX with a good response on CT scan, and then he received SBRT at the [facility], ending about a month ago. He is scheduled for a Whipple procedure at the [facility] next week. Over the last few days he has had some nausea, vomiting, abdominal pain, and decreased oral intake. He came to the emergency room. An abdominal x-ray showed moderate constipation. There is a stent in his biliary tree. An abdominal CT scan showed a mass in the pancreatic head with pneumobilia. There was gastric and duodenal distention and constipation was noted. He is feeling somewhat better today but still has some nausea and some mild pain in his right upper quadrant. PAST MEDICAL HISTORY: Otherwise unremarkable. He is accompanied by his . REVIEW OF SYSTEMS: A 10-point review of systems is negative except for what was stated in the HPI. EXAM: VITAL SIGNS: Currently, blood pressure 147/80, heart rate 55, he is afebrile. HEENT: He is not icteric. Pharynx is unremarkable. NECK: I detect no cervical, supraclavicular adenopathy. LUNGS: Clear to auscultation and percussion. CARDIAC: Normal S1, S2 without murmurs, clicks, or added sounds. ABDOMEN: Shows hyperactive bowel sounds. He has mild tenderness in his right upper quadrant without rebound. EXTREMITIES: Show no edema. NEUROLOGIC: Nonfocal. LABORATORY DATA: White count 4.93, hemoglobin 13.6, hematocrit 40.4, platelets 183,000. Chemistry panel: Sodium 143, potassium 3.7, carbon dioxide 33, glucose 108, lipase is elevated at 1065. IMPRESSION: Abdominal pain, some nausea in the setting of pancreatic carcinoma s/p chemo and RT. Differential I think includes gastritis, duodenitis, perhaps caused by his radiation therapy. The possibility of pancreatitis is at least a consideration given the elevated lipase. Constipation could be playing a role. PLAN: At this time is IV hydration and antiemetics and bowel rest. GI consult is pending. Our service will follow with you. /[id number]/MODL MTDD
--- NOTE | 2017-07-11 17:59 | GCON ---
[f rep st] CONSULTATION REFERRING PHYSICIAN: Yon Herrera MD REASON FOR CONSULTATION: Abdominal pain. CHIEF COMPLAINT: Abdominal pain and constipation. HISTORY OF PRESENT ILLNESS: Briefly, the patient is a pleasant 72-year-old male with a recent diagno sis of pancreatic head cancer. He is status post endoscopic ultrasound and ERCP with biliary drain p lacement. He has started into regimen of chemotherapy and radiation. He reports that during the shelley motherapy and radiation regimen, he began having epigastric abdominal pain. This would sometimes be associated with some mild nausea. He reports no previous vomiting. Despite those symptoms, he is ab le to maintain p.o. intake. Over the last several days, he reports he has had decreased p.o. intake, associated with increasing c onstipation, worsening abdominal pain, and vomiting. He has had a difficult time maintaining his med ication regimen because of the vomiting. He started to feel weak and presented to the emergency room for evaluation. He has been admitted for workup and management of his pain symptoms associated with decreased p.o. intake. ALLERGIES: None. OUTPATIENT MEDICATIONS: Include Ativan, Ambien, pancreatic enzyme replacement, Zantac, carboxymethyl cellulose, Lexapro, Creon, and Carafate. SOCIAL HISTORY: He is a former smoker. He does not drink or use drugs. FAMILY HISTORY: Negative for pancreatic cancer. REVIEW OF SYSTEMS: A complete 14-point review was undertaken with the patient. The pertinent positi ves and negatives are detailed in the history of present illness. PHYSICAL EXAMINATION: GENERAL: This is a thin male in no apparent distress. HEENT: His pupils are equal, round, reactive to light and accommodation. His sclerae are nonicteric. His oropharynx is c lear. His mucous membranes are somewhat dry. CARDIOVASCULAR: Normal rate and rhythm. RESPIRATORY: No rales or rhonchi. His respiratory effort is good. His lungs are clear to auscultation. GI: N ormoactive bowel sounds. He has mild generalized tenderness with some particular increase in tendern ess in the right upper quadrant. SKIN: Warm and dry without lesions. NEUROLOGIC: Grossly nonfocal . PSYCH: Normal mood and affect. EXTREMITIES: Joints show no arthritis. LABORATORY/IMAGING: White count 4.9, hemoglobin 13.6, hematocrit of 40.4, platelet count of 183. IN R 1.03. Chemistry: Sodium of 143, potassium of 3.7, chloride of 98, bicarb of 33, BUN of 16, creati nine of 0.7. Total bilirubin of 0.8, conjugated bilirubin 0.4. AST, ALT, and alkaline phosphatase a re normal. Lipase is 1065. CT scan on admission revealed evidence of duodenitis, pancreatic head mass with pancreatic ductal dil ation and biliary stent were also noted (unchanged). Gastric and duodenal distention were noted as w ell. He has also described to have moderate stool in the rectosigmoid colon consistent with constipa tion. IMPRESSION/RECOMMENDATIONS: I suspect his pain symptoms are related to his pancreatic head mass. He may have some mild pancreatitis related to the chemotherapy and radiation. There is no evidence of biliary ductal obstruction based on his liver function tests. He likely also has some contributing i nfluence of duodenitis and gastritis, as well as constipation. At this time, I recommend we maximize supportive care with antiemetic therapies, analgesic therapies, antiacid therapies, and a bowel dusty men. I do not see any merit to additional imaging or endoscopic evaluation at this time. I am hopef ul that with some additional supportive measures, he will feel better and be able to discharge home s oon. We will start Protonix IV and change to Protonix p.o. While he previously reported intolerance to Pr otonix due to diarrhea, Protonix would be more effective acid reduction therapy and he is currently s uffering from constipation. We can also resume sucralfate as soon as he is able to take p.o. I krista hale it is safe for him to start eating again tonight if he chooses. With regard to constipation care, we will increase his MiraLAX to b.i.d. and administer a fleets enem a today. We will monitor his progress overnight, and hope for discharge tomorrow. /[id number]/MODL
[2017-07-11] MEDS: PANTOPRAZOLE SODIUM 40 MG VIAL IVP SCH (20:39)
[2017-07-11] MEDS: FAMOTIDINE 20 MG/NACL 50 ML IV SCH (20:39)
[2017-07-11] MEDS ORDERED: ESCITALOPRAM OXALATE 10 MG TAB PO SCH (21:00)
[2017-07-12] MEDS: ONDANSETRON 4 MG/2 ML VIAL IVP PRN (04:42)
[2017-07-12] MEDS: LIPASE 24,000/AMYLASE/PROTEASE (CREON) 1 CAP PO SCH ×2 (08:38→14:29)
[2017-07-12] MEDS: PANTOPRAZOLE SODIUM 40 MG VIAL IVP SCH (09:12)
[2017-07-12] MEDS: ONDANSETRON 4 MG/2 ML VIAL IVP SCH ×2 (09:12→14:07)
[2017-07-12] MEDS: NS 1,000 ML IV SCH (09:24)
--- NOTE | 2017-07-12 11:05 | SOAPPROG ---
SOAP Progress Note Assessment/Plan: Assessment: 1. Pancreatic ca 2. pancreatitis, lipase 1200 3. constipation, better 4. Gastritis, duodenitis Plan:Advance diet per GI 07/12/17 11:00 Subjective: Feels better post BM last night, still pain RUQ radiating to back Objective: Vital Signs Temp Pulse Resp BP Pulse Ox 98.4 F 66 19 151/79 H 93 07/12/17 08:29 07/12/17 08:29 07/12/17 08:29 07/12/17 08:29 07/12/17 08:29 Laboratory Results 07/12/17 04:35 07/12/17 04:35 07/11/17 07/12/17 07/13/17 05:59 05:59 05:59 Intake Total 2510 Balance 2510 PT 13.7 SEC (12.0-15.0) 07/11/17 04:35 INR 1.03 (0.83-1.16) 07/11/17 04:35 Physical Exam - Physical Exam General Appearance: alert, mild distress Respiratory: lungs clear, normal breath sounds Cardiac/Chest: regular rate, rhythm Abdomen: normal bowel sounds, No non-tender (tender RUQ) ICD10 Worksheet Patient Problems: Problems Problem Status Onset Abdominal pain Acute Constipation Acute Duodenitis Acute Pancreatitis Acute
[2017-07-12] MEDS: FAMOTIDINE 20 MG/NACL 50 ML IV SCH (11:16)
--- NOTE | 2017-07-12 11:56 | SOAPPROG ---
BRADY Progress Note Assessment/Plan: Assessment: 1. Constipation - better after enema 2. Duodenitis/Gastritis - tolerating po today Plan: 1. advance diet 2. dc home with miralax 17gm bid 3. dc home with daily PPI (Protonix 40mg qd) 4. no need for H2B 5. if does not tolerate PPI (prior diarrhea?), can change to H2B BID-TID ( Zantac 150mg for example) 6. To some degree, micro-managing these issues now, is moot... as after Whipple surgery, next week, his symptoms and bowel function is likely to change 7. Will sign off, call with questions 07/12/17 11:52 Subjective: CC: constipation S: feeling much better after enema tolerating clears w/o problems no pain this AM no fever no chills no SOB Objective: Vital Signs Temp Pulse Resp BP Pulse Ox 36.9 C 66 19 151/79 H 93 07/12/17 08:29 07/12/17 08:29 07/12/17 08:29 07/12/17 08:29 07/12/17 08:29 Laboratory Results 07/12/17 04:35 07/12/17 04:35 07/11/17 07/12/17 07/13/17 05:59 05:59 05:59 Intake Total 2510 Balance 2510 PT 13.7 SEC (12.0-15.0) 07/11/17 04:35 INR 1.03 (0.83-1.16) 07/11/17 04:35 Physical Exam - Physical Exam General Appearance: alert EENT: PERRL/EOMI Neck: full range of motion Respiratory: lungs clear Cardiac/Chest: normal peripheral pulses, regular rate, rhythm Abdomen: normal bowel sounds, non-tender, soft, No organomegaly Skin: normal color Extremities: normal range of motion Neuro/Psych: no motor/sensory deficits ICD10 Worksheet Patient Problems: Problems Problem Status Onset Abdominal pain Acute Constipation Acute Duodenitis Acute Pancreatitis Acute
--- NOTE | 2017-07-12 12:05 | ASMTCMCOM ---
CM Note CM Note Notes: Spoke w/RN, pt admitted w/abd pain, n/v. He lives with his and has a recent diagnosis of pancreatic ca, for which he has a scheduled whipple procedure at [facility] next week. Otherwise pt is independent and will dc home w/support of . CM available for any changes. DC Plan: Independent Date Signed: 07/12/2017 12:05 PM Electronically Signed By:Dulce Khan RN
[2017-07-12] MEDS: ACETAMINOPHEN 325 MG TAB PO PRN (14:01)
--- NOTE | 2017-07-12 15:06 | PDDCSUM ---
Discharge Summary Discharge Summary: This is a 72 yo male with hx of pancreatic cancer s/p chemo/RT who p/w with abd pain, n/v, constipation, and diarrhea. He was admitted. GI and Oncology consulted. He is doing better. He is tolerating a regular diet. He was offered to stay for additional IVF but given his improvement, he has requested discharge. Plan: 1. Regular diet 2. dc home with miralax 17gm daily 3. dc home with daily PPI (Protonix 40mg qd) 4. no need for H2B 5. if does not tolerate PPI (prior diarrhea?), can change to H2B BID-TID ( Zantac 150mg for example) 6. Whipple surgery, next week DDX: #Abdominal pain, likely multifactorial. -Recent chemo and radiation are likely playing a large role #Duodenitis #Gastritis #constipation. better after enem #Pancreatic cancer #Dehydration, better with IVF #N/V Exam: NAD AAOX3 RRR CTA B S/NT/ND NO LE EDEMA MEDS: SEE MED REC TOTAL TIME SPENT ON D/C IS 35 MINS
[2017-07-12 15:19] VITALS: BP 163/85
== END 2017-07-12 15:35 | disposition home or self-care (01) ==
LOC: F3E 07:56
PROVIDERS: ADMIT Family Medicine; ATTEND Family Medicine
DX: K29.80 Duodenitis without bleeding (principal); K29.70 Gastritis, unspecified, without bleeding; K59.00 Constipation, unspecified; E86.0 Dehydration; C25.0 Malignant neoplasm of head of pancreas; Z87.891 Personal history of nicotine dependence; Z92.3 Personal history of irradiation; Z92.21 Personal history of antineoplastic chemotherapy
CPT/HCPCS: 74018; 74177; 96361; 96374; 96375; 99285; G0378; J1170; J1642; J2405; J2550; Q9967; J1650